=== PATIENT | female | born 1965 | race Caucasian/White ===

== ENCOUNTER → 2017-10-02 | Outpatient (CLI) | payer BC ==
--- NOTE | 2017-10-02 11:24 | CT ---
EXAMINATION TYPE: CT shoulder LT wo con DATE OF EXAM: 10/02/2017 COMPARISON: Left humeral x-ray dated 09-25-2017. HISTORY: Left shoulder pain and fracture post fall on 09/24/17. Three-part fracture surgical neck lef t humerus. Displaced fracture of greater tuberosity all per order. CT DLP: 354.7 mGycm Automated exposure control for dose reduction was used. FINDINGS: There is acute minimally displaced comminuted fracture surgical neck of left proximal humerus. There is some mild impaction of distal fracture fragment. No significant angulation or displacement is iden tified. Fracture line involves humeral head shaft and greater tuberosity. Glenohumeral articulation is maintained. There is however 5 mm ossific fragment or loose foreign body along the anterior-inferi or aspect of the glenoid seen on axial image 26 and coronal image 37. Acromioclavicular joint is intact. There is some mild joint space loss and spurring. Distal acromion morphology is unremarkable. Remainder of scapula is unremarkable. Visualized ribs are intact. Rotator cuff muscle bulk is preserved. IMPRESSION: ACUTE COMMINUTED MINIMALLY DISPLACED PROXIMAL LEFT HUMERAL FRACTURE DETAILED ABOVE, TECHNICALLY 1 PART NEER TYPE FRACTURE GIVEN THREE-PART FRACTURE LINE INVOLVEMENT WITHOUT SIGNIFICANT ANGULATION OR DISPLACEMENT.
== END | disposition home or self-care (01) ==
LOC: RADCTMAIN 10:19
PROVIDERS: ATTEND Orthopaedic Surgery
DX: S42.421A Displaced comminuted supracondylar fracture without intercondylar fracture of right humerus, initial encounter for closed fracture (principal)